=== PATIENT | female | born 1975 | race Two or more races ===

== ENCOUNTER 2020-10-24 10:51 | Outpatient (CLI) | payer OTHER | END 2020-10-24 10:55 | disposition home or self-care (01) | LOC: SONOGRAMA 10:51 | PROVIDERS: ATTEND Pathology Anatomic Pathology | DX: E04.1 Nontoxic single thyroid nodule (principal) ==

== ENCOUNTER 2024-07-14 13:16 | Inpatient (IN) | payer OTHER ==
[~2024-07-14] VITALS: Ht 167.6 cm; Wt 215.9 kg
[2024-07-14] MEDS ORDERED: LIPITOR40 M1 PO (13:34)
[2024-07-14] MEDS ORDERED: SINGULAIR4 M1 PO (13:34)
--- NOTE | 2024-07-14 13:34 | NUR ---
PACIENTE ALERTA Y ORIENTADA X3. REFIERE DOLOR PELVICO DESDE HACEN VARIOS [place] SE ESTIMAN VITALES Y SE UBICA. REFIERE AL MOMENTO DEL TRIAGE, UN EPISODIO DE DIARREA Y NO VOMITOS.
[2024-07-14] MEDS ORDERED: KETOROLAC TROMETHAMINE 30 MG VIAL IV ONE (15:00)
[2024-07-14] MEDS ORDERED: FAMOTIDINE/PF 20 MG/2 ML VIAL IV ONE (15:00)
[2024-07-14] MEDS ORDERED: 0.9 % SODIUM CHLORIDE 1,000 ML IV ONE (15:00)
[2024-07-14 15:11] LABS: URINE APPEARANCE Clear; URINE BILIRRUBIN Negative (NEGATIVE); URINE BLOOD Negative; URINE COLOR Yellow; URINE GLUCOSE Negative (NEGATIVE); URINE KETONE Trace (NEGATIVE); URINE LEUKOCYTE Negative; URINE NITRATE Negative; URINE PROTEIN Negative (NEGATIVE)
[2024-07-14 15:14] LABS: URINE BACTERIA 13.8 uL (0.0-1933); URINE EPITHELIAL CELLS 9.8 uL (0.0-38.8); URINE RBC 32.9 uL (0.0-20.8); URINE WBC 2.9 uL (0.0-23.2)
[2024-07-14 15:16] LABS: URINE CAST 0.15 uL (0.0-1.40)
[2024-07-14] MEDS ORDERED: METRONIDAZOLE/SODIUM CHLORIDE 500 MG/100 ML PIGGYBACK IV ONE (15:30)
[2024-07-14] MEDS ORDERED: CIPROFLOXACIN IN 5 % DEXTROSE 400 MG/200 ML PIGGYBAG IV ONE (15:30)
--- NOTE | 2024-07-14 15:43 | NUR ---
SE REALIZA LABORATORIOS Y SE ADMINISTRA MEDICAMENTOS, SE ORIENTA A PTE QUIEN REFIERE ENTENDER Y ACEPTAR.
[2024-07-14 15:50] LABS: HEMATOCRIT 41.5 % (36.0-45.00); HEMOGLOBIN 14.1 g/dL (12.0-15.00); MEAN CORPUSCULAR HEMOGLOBIN 30.7 pg (27.00-32.0); MEAN CORPUSCULAR HGB CONC 34.1 g/dl (32.0-36.0); PLATELET COUNT 264 K/uL (150-450); RED BLOOD COUNT 4.61 M/uL (4.00-6.00); RED CELL DISTRIBUTION WIDTH 13.2 % (11.5-14.5)
[2024-07-14 16:12] LABS: ALBUMIN 4.1 gm/dL (3.4-5.0); BILIRUBIN TOTAL 0.7 mg/dL (0.3-1.2); CALCIUM 9.7 mg/dL (8.5-10.1); CREATININE SERUM 0.81 mg/dL (0.55-1.02); GFR 75.15; GLOBULINA 4.3 G/DL (2.4-3.5); POTASSIUM 4.21 mEq/L (3.5-5.1); TOTAL PROTEIN 8.4 gm/dL (6.4-8.2)
[2024-07-14] MEDS ORDERED: ACETAMINOPHEN 500 MG GEL..CAP PO PRN (17:15)
[2024-07-14] MEDS ORDERED: MORPHINE SULFATE 4 MG/ML CARTRIDGE IV SCH (17:15)
[2024-07-14] MEDS ORDERED: 0.9 % SODIUM CHLORIDE 1,000 ML IV SCH (17:15)
[2024-07-14] MEDS ORDERED: ONDANSETRON HCL 4 MG in 0.9 % SODIUM CHLORIDE 50 ML IV PRN (17:15)
[2024-07-14 18:12] LABS: INR 1.01; PARTIAL THROMBOPLASTIN TIME 29.3 SECONDS (22.0-34.0)
[2024-07-14] MEDS ORDERED: CIPROFLOXACIN IN 5 % DEXTROSE 200 ML IV SCH (21:00)
[2024-07-14 21:31] VITALS: BP 133/63
[2024-07-15] MEDS ORDERED: METRONIDAZOLE/SODIUM CHLORIDE 100 ML IV SCH (01:00)
[2024-07-15 01:08] VITALS: BP 118/67; O2SAT 98
[2024-07-15] MEDS ORDERED: MORPHINE SULFATE 4 MG/ML CARTRIDGE IV PRN (08:00)
[2024-07-15 08:54] VITALS: BP 131/79; O2SAT 97
[2024-07-15] MEDS ORDERED: ENOXAPARIN SODIUM 40 MG/0.4 ML SYRINGE SUBCUTANEO SCH (09:00)
[2024-07-15] MEDS ORDERED: FAMOTIDINE/PF 20 MG in 0.9 % SODIUM CHLORIDE 8 ML IV PUSH SCH (09:00)
[2024-07-15 17:50] VITALS: BP 119/64
[2024-07-16 02:44] VITALS: BP 109/72; O2SAT 97
[2024-07-16 06:22] LABS: HEMATOCRIT 36.8 % (36.0-45.00); HEMOGLOBIN 12.6 g/dL (12.0-15.00); MEAN CELL VOLUME 90.1 fL (80.00-100.00); MEAN CORPUSCULAR HEMOGLOBIN 30.9 pg (27.00-32.0); MEAN CORPUSCULAR HGB CONC 34.3 g/dl (32.0-36.0); PLATELET COUNT 228 K/uL (150-450); RED BLOOD COUNT 4.09 M/uL (4.00-6.00); RED CELL DISTRIBUTION WIDTH 13.1 % (11.5-14.5)
[2024-07-16 06:43] LABS: ALBUMIN 3.2 gm/dL (3.4-5.0); BILIRUBIN TOTAL 0.58 mg/dL (0.3-1.2); CALCIUM 8.6 mg/dL (8.5-10.1); CREATININE SERUM 0.75 mg/dL (0.55-1.02); GFR 82.13; GLOBULINA 3.1 G/DL (2.4-3.5); MAGNESIUM 2.2 mg/dL (1.8-2.4); POTASSIUM 4.17 mEq/L (3.5-5.1); TOTAL PROTEIN 6.3 gm/dL (6.4-8.2)
[2024-07-16 08:30] VITALS: BP 112/75
[2024-07-16] MEDS ORDERED: CIPRO500 MG PO (16:25)
[2024-07-16] MEDS ORDERED: METRONIDAZOLE500 MG PO (16:26)
[2024-07-16] MEDS ORDERED: PANTOPRAZOLE SO40 MG PO (16:27)
== END 2024-07-16 16:46 | disposition home or self-care (01) | DRG 392 ==
LOC: ER 13:18 → MEDJ 19:23
PROVIDERS: General Practice; Nurse Practitioner Family; ADMIT Internal Medicine; ATTEND Internal Medicine
PROC: BW21ZZZ Computerized Tomography (CT Scan) of Abdomen and Pelvis (ICD-10-PCS; principal; 2024-07-14)
DX: K57.32 Diverticulitis of large intestine without perforation or abscess without bleeding (principal); R65.10 Systemic inflammatory response syndrome (SIRS) of non-infectious origin without acute organ dysfunction